=== PATIENT | female | born 1940 | race African-American/Black ===

== ENCOUNTER 2024-12-20 06:08 | Emergency (ER) | payer OTHER ==
[~2024-12-20] VITALS: Ht 154.9 cm; Wt 52.0 kg
[2024-12-20 06:10] VITALS: O2SAT 95
[2024-12-20 06:30] VITALS: TEMP 36.4
[2024-12-20 06:48] LABS: BASOPHILS % 0.6 % (0.0-2.0); EOSINOPHILS % 2.5 % (0.0-5.0); HEMATOCRIT. 42.4 % (36.0-48.0); HEMOGLOBIN. 13.5 g/dL (12.0-16.0); LYMPHOCYTES % 33.4 % (20.0-50.0); MEAN PLATELET VOLUME 8.7 fl (7.4-10.4); MONOCYTES % 7.3 % (2.0-8.0); NEUTROPHILS % 56.2 % (40.0-76.0); PLATELET 174 x1000/uL (130-400); RED BLOOD CELL COUNT 4.41 mill/uL (4.2-5.4); RED CELL DISTRIBUTION WIDTH 13.9 % (11.6-14.6)
[2024-12-20 07:04] LABS: CREATININE 1.7 mg/dL (0.6-1.0); UREA NITROGEN BLOOD 10 mg/dL (9-23)
[2024-12-20 07:05] LABS: TROPONIN I HIGH SENSITIVITY < 4 ng/L (3.0-34)
[2024-12-20] MEDS: POTASSIUM CHLORIDE 20MEQ/PACKET PO ONE (07:29)
[2024-12-20 08:57] VITALS: BP 136/61; PULSE 63; RESP 15; O2SAT 95
== END 2024-12-20 09:30 | disposition short-term general hospital (02) ==
LOC: ER 06:08 → CMPBEDREQ 09:37
DX: R55 Syncope and collapse (principal); I10 Essential (primary) hypertension; Z79.01 Long term (current) use of anticoagulants; Z86.73 Personal history of transient ischemic attack (TIA), and cerebral infarction without residual deficits; Z88.0 Allergy status to penicillin; Z95.0 Presence of cardiac pacemaker
CPT/HCPCS: 36415; 71045; 80048; 84484; 85025; 93005; 99285